=== PATIENT | female | born 1985 | race Caucasian/White ===

== ENCOUNTER 2021-10-12 06:45 | Emergency (ER) | payer SELFPAY ==
[~2021-10-12] VITALS: Ht 167.6 cm; Wt 57.0 kg
[2021-10-12] MEDS ORDERED: HYDR-4001 MT (08:26)
[2021-10-12] MEDS ORDERED: HYDROCODONE/ACETAMINOPHEN 5/325MG TABLET PO ONE (08:30)
[2021-10-12 09:14] VITALS: BP 115/75
== END 2021-10-12 09:17 | disposition home or self-care (01) ==
LOC: ER 06:45
DX: K02.9 Dental caries, unspecified (principal); Z88.8 Allergy status to other drugs, medicaments and biological substances
CPT/HCPCS: 81025; 99283

== ENCOUNTER 2022-02-20 15:34 | Emergency (ER) | payer MEDICAID ==
[~2022-02-20] VITALS: Ht 172.7 cm; Wt 68.1 kg
[~2022-02-20 15:34] MED LIST: HYDR-4001 MT
[2022-02-20 15:40] VITALS: BP 127/84
[2022-02-20] MEDS ORDERED: IBUPROFEN 600MG TABLET PO ONE (18:15)
[2022-02-20] MEDS ORDERED: NAPR-1176 MT (18:15)
== END 2022-02-20 19:16 | disposition home or self-care (01) ==
LOC: ER 15:34
DX: R20.2 Paresthesia of skin (principal); Z88.6 Allergy status to analgesic agent
CPT/HCPCS: 81025; 82962; 99282

== ENCOUNTER 2022-04-05 14:45 | Emergency (ER) | payer MEDICAID ==
[~2022-04-05] VITALS: Ht 165.1 cm; Wt 60.0 kg
[~2022-04-05 14:45] MED LIST changes: +NAPR-1176 MT
[2022-04-05] MEDS ORDERED: IBUPROFEN 600MG TABLET PO ONE (15:30)
[2022-04-05] MEDS ORDERED: TETANUS, DIPHTHERIA, PERTUSSIS VAC/PF 0.5ML (>10YR OLD) IM ONE (15:30)
[2022-04-05] MEDS ORDERED: BACITRACIN ZINC OINT UDPKT TOP ONE (15:45)
[2022-04-05] MEDS ORDERED: T3 PO (15:59)
[2022-04-05] MEDS ORDERED: BO1 TP (16:01)
[2022-04-05 16:10] VITALS: BP 118/73
== END 2022-04-05 16:12 | disposition home or self-care (01) ==
LOC: ER 14:45
DX: S67.192A Crushing injury of right middle finger, initial encounter (principal); S61.212A Laceration without foreign body of right middle finger without damage to nail, initial encounter; X58.XXXA Exposure to other specified factors, initial encounter; Y93.89 Activity, other specified; Y92.89 Other specified places as the place of occurrence of the external cause; Y99.8 Other external cause status
CPT/HCPCS: 29130; 73130; 90471; 90715; 99283

== ENCOUNTER 2022-08-12 22:43 | Emergency (ER) | payer MEDICAID ==
[~2022-08-12] VITALS: Ht 175.3 cm; Wt 72.0 kg
[~2022-08-12 22:43] MED LIST changes: +BO1 TP; +T3 PO
[2022-08-12 23:13] VITALS: BP 129/87
[2022-08-12 23:57] LABS: CHLORIDE 107 mEq/L (98-107)
[2022-08-13 00:05] LABS: BASOPHILS % 0.7 % (0.0-2.0); EOSINOPHILS % 7.8 % (0.0-5.0); HEMATOCRIT. 38.7 % (36.0-48.0); HEMOGLOBIN. 13.3 g/dL (12.0-16.0); MEAN CORPUSCULAR HEMOGLOBIN 30.2 pg (28.0-32.0); MEAN CORPUSCULAR VOLUME 87.9 fL (81.0-99.0); MEAN PLATELET VOLUME 7.5 fl (7.4-10.4); MONOCYTES % 6.8 % (2.0-8.0); NEUTROPHILS % 48.7 % (40.0-76.0); PLATELET 287 x1000/uL (130-400)
[2022-08-13 01:45] LABS: CLARITY URINE CLEAR (CLEAR); COLOR URINE YELLOW (YELLOW); KETONES URINE NEGATIVE (NEGATIVE); LEUKOCYTE ESTERASE URINE NEGATIVE (NEGATIVE); NITRITE URINE NEGATIVE (NEGATIVE); OCCULT BLOOD URINE 2+ (NEGATIVE); PH URINE 5.5 (4.5-8.0); PROTEIN URINE NEGATIVE (NEGATIVE); SPECIFIC GRAVITY URINE 1.022 (1.005-1.030); UROBILINOGEN URINE 0.2 E.U./dL (0.2-1.0)
[2022-08-13] MEDS ORDERED: VISCOUS LIDOCAINE 2% 15 ML UDC MM STA (03:48)
[2022-08-13] MEDS ORDERED: FAMOTIDINE 20MG TABLET PO ONE (04:00)
[2022-08-13] MEDS ORDERED: MAGNESIUM/ALUMINUM HYDROXIDE/SIMETHICONE 30ML UDC PO ONE (04:00)
[2022-08-13] MEDS ORDERED: POTASSIUM CHLORIDE 20MEQ TABLET SR PO ONE (04:30)
== END 2022-08-13 05:06 | disposition home or self-care (01) ==
LOC: ER 22:43
DX: R10.13 Epigastric pain (principal); R11.0 Nausea
CPT/HCPCS: 36415; 71045; 80053; 81003; 81025; 84484; 85025; 99284

== ENCOUNTER 2022-10-01 14:10 | Emergency (ER) | payer MEDICAID ==
[~2022-10-01] VITALS: Ht 170.2 cm; Wt 68.0 kg
[2022-10-01 14:18] VITALS: BP 116/63; PULSE 86; RESP 16; TEMP 98.5; O2SAT 98
[2022-10-01 14:42] LABS: BASOPHILS % 0.6 % (0.0-2.0); EOSINOPHILS % 4.9 % (0.0-5.0); HEMATOCRIT. 38.4 % (36.0-48.0); HEMOGLOBIN. 13.1 g/dL (12.0-16.0); LYMPHOCYTES % 19.7 % (20.0-50.0); MEAN CORPUSCULAR VOLUME 87.8 fL (81.0-99.0); MEAN PLATELET VOLUME 7.5 fl (7.4-10.4); MONOCYTES % 5.3 % (2.0-8.0); NEUTROPHILS % 69.5 % (40.0-76.0); PLATELET 283 x1000/uL (130-400); RED BLOOD CELL COUNT 4.37 mill/uL (4.2-5.4); RED CELL DISTRIBUTION WIDTH 13.4 % (11.6-14.6)
[2022-10-01 14:53] LABS: CLARITY URINE CLEAR (CLEAR); COLOR URINE YELLOW (YELLOW); KETONES URINE NEGATIVE (NEGATIVE); LEUKOCYTE ESTERASE URINE NEGATIVE (NEGATIVE); NITRITE URINE NEGATIVE (NEGATIVE); OCCULT BLOOD URINE 3+ (NEGATIVE); PH URINE 5.5 (4.5-8.0); PROTEIN URINE NEGATIVE (NEGATIVE); SPECIFIC GRAVITY URINE 1.024 (1.005-1.030)
[2022-10-01 14:59] LABS: CHLORIDE 110 mEq/L (98-107)
[2022-10-01 15:15] LABS: HCG SCREEN NEGATIVE
[2022-10-01] MEDS ORDERED: LACT1CAP78 MT (17:08)
[2022-10-01] MEDS ORDERED: TOPUD PO (17:08)
== END 2022-10-01 19:41 | disposition home or self-care (01) ==
LOC: ER 14:10
DX: K52.9 Noninfective gastroenteritis and colitis, unspecified (principal)
CPT/HCPCS: 36415; 74176; 80053; 81003; 81025; 84703; 85025; 99284

== ENCOUNTER 2023-04-14 09:31 | Emergency (ER) | payer MEDICAID ==
[~2023-04-14] VITALS: Ht 170.2 cm; Wt 70.0 kg
[~2023-04-14 09:31] MED LIST changes: +LACT1CAP78 MT; +TOPUD PO
[2023-04-14 09:44] VITALS: O2SAT 99
[2023-04-14] MEDS ORDERED: ACETAMINOPHEN 500MG TABLET PO ONE (10:45)
[2023-04-14] MEDS ORDERED: ACET-2708 MT (11:10)
[2023-04-14 11:25] VITALS: BP 114/68; PULSE 77; RESP 18; TEMP 98.2
[2023-04-14] MEDS ORDERED: CYCL10TA21 MT (11:33)
== END 2023-04-14 12:01 | disposition home or self-care (01) ==
LOC: ER 10:07
DX: M79.672 Pain in left foot (principal); Z79.899 Other long term (current) drug therapy
CPT/HCPCS: 73630; 99283

== ENCOUNTER 2023-04-27 18:04 | Emergency (ER) | payer SELFPAY ==
[~2023-04-27] VITALS: Ht 162.6 cm; Wt 65.0 kg
[~2023-04-27 18:04] MED LIST changes: +ACET-2708 MT; +CYCL10TA21 MT
[2023-04-27 18:35] VITALS: BP 126/69; PULSE 82; RESP 16; TEMP 98; O2SAT 99
[2023-04-27] MEDS ORDERED: GUAI600T26 PO (18:56)
[2023-04-27] MEDS ORDERED: TOPUD PO (18:56)
[2023-04-27] MEDS ORDERED: ONDA4TAB50 PO (18:56)
== END 2023-04-27 19:45 | disposition home or self-care (01) ==
LOC: ER 18:04
DX: U07.1 COVID-19 (principal); R51.9 Headache, unspecified
CPT/HCPCS: 99281; 99283

== ENCOUNTER 2023-06-08 13:13 | Emergency (ER) | payer SELFPAY ==
[~2023-06-08] VITALS: Ht 165.1 cm; Wt 68.0 kg
[~2023-06-08 13:13] MED LIST changes: +GUAI600T26 PO; +ONDA4TAB50 PO
[2023-06-08 13:17] VITALS: BP 110/61; PULSE 71; RESP 16; TEMP 98.1; O2SAT 100
[2023-06-08 15:45] LABS: BASOPHILS % 0.8 % (0.0-2.0); EOSINOPHILS % 3.5 % (0.0-5.0); HEMOGLOBIN. 12.8 g/dL (12.0-16.0); LYMPHOCYTES % 24.4 % (20.0-50.0); MEAN CORPUSCULAR HEMOGLOBIN 30.3 pg (28.0-32.0); MEAN CORPUSCULAR HGB CONC 34.7 g/dL (31.0-37.0); MEAN CORPUSCULAR VOLUME 87.4 fL (81.0-99.0); MEAN PLATELET VOLUME 7.5 fl (7.4-10.4); MONOCYTES % 6.4 % (2.0-8.0); NEUTROPHILS % 64.9 % (40.0-76.0); PLATELET 296 x1000/uL (130-400); RED BLOOD CELL COUNT 4.23 mill/uL (4.2-5.4); WHITE BLOOD COUNT 7.2 x1000/uL (4.5-11.0)
[2023-06-08 16:16] LABS: ALANINE AMINOTRANSFERASE 10 IU/L (10-49); ALBUMIN 4.4 g/dL (3.2-4.8); ASPARTATE AMINOTRANSFERASE 12 IU/L (<34); BILIRUBIN TOTAL 0.4 mg/dL (0.1-1.0); CALCIUM 9.1 mg/dL (8.7-10.4); CARBON DIOXIDE 27 mEq/L (21-32); CHLORIDE 107 mEq/L (98-107); CREATININE 0.6 mg/dL (0.6-1.0); GLUCOSE 92 mg/dL (70-105); POTASSIUM 3.4 mEq/L (3.5-5.1); PROTEIN TOTAL 6.6 g/dL (6.0-8.3); SODIUM 140 mEq/L (136-145); UREA NITROGEN BLOOD 7 mg/dL (9-23)
[2023-06-08 16:37] LABS: TROPONIN I HIGH SENSITIVITY < 4 ng/L (3.0-34)
== END 2023-06-08 18:38 | disposition home or self-care (01) ==
LOC: ER 13:13
DX: R07.89 Other chest pain (principal); Z79.899 Other long term (current) drug therapy
CPT/HCPCS: 36415; 71045; 80053; 84484; 85025; 93005; 99285

== ENCOUNTER 2023-08-08 14:36 | Emergency (ER) | payer MEDICAID ==
[~2023-08-08] VITALS: Ht 165.1 cm; Wt 74.5 kg
[2023-08-08 14:41] VITALS: O2SAT 99
[2023-08-08 15:00] LABS: CLARITY URINE CLOUDY (CLEAR); COLOR URINE YELLOW (YELLOW); GLUCOSE URINE NEGATIVE (NEGATIVE); KETONES URINE NEGATIVE (NEGATIVE); LEUKOCYTE ESTERASE URINE 3+ (NEGATIVE); NITRITE URINE POSITIVE (NEGATIVE); OCCULT BLOOD URINE 2+ (NEGATIVE); PH URINE 5.5 (4.5-8.0); PROTEIN URINE 1+ (NEGATIVE); SPECIFIC GRAVITY URINE 1.022 (1.005-1.030); UROBILINOGEN URINE 0.2 E.U./dL (0.2-1.0)
[2023-08-08 15:05] LABS: BASOPHILS % 0.1 % (0.0-2.0); HEMATOCRIT. 40.9 % (36.0-48.0); HEMOGLOBIN. 13.9 g/dL (12.0-16.0); LYMPHOCYTES % 20.3 % (20.0-50.0); MEAN CORPUSCULAR HEMOGLOBIN 30.4 pg (28.0-32.0); MEAN CORPUSCULAR VOLUME 89.3 fL (81.0-99.0); MEAN PLATELET VOLUME 7.8 fl (7.4-10.4); MONOCYTES % 7.4 % (2.0-8.0); NEUTROPHILS % 66.2 % (40.0-76.0); PLATELET 281 x1000/uL (130-400); RED BLOOD CELL COUNT 4.58 mill/uL (4.2-5.4); RED CELL DISTRIBUTION WIDTH 12.9 % (11.6-14.6); WHITE BLOOD COUNT 7.6 x1000/uL (4.5-11.0)
[2023-08-08 15:15] LABS: SQUAMOUS EPITHELIAL CELL URINE 2+ /lpf (RARE/1+); WBC URINE TNTC /hpf (0-2)
[2023-08-08 15:16] LABS: BACTERIA URINE 3+; CHLORIDE 109 mEq/L (98-107); POTASSIUM 3.4 mEq/L (3.5-5.1); RBC URINE 0-2 /hpf (0-2); SODIUM 140 mEq/L (136-145)
[2023-08-08 15:18] LABS: CALCIUM 8.5 mg/dL (8.7-10.4); CARBON DIOXIDE 24 mEq/L (21-32)
[2023-08-08 15:23] LABS: CREATININE 0.7 mg/dL (0.6-1.0); GLUCOSE 82 mg/dL (70-105); UREA NITROGEN BLOOD 8 mg/dL (9-23)
[2023-08-08] MEDS: ONDANSETRON 4MG ODT PO ONE (16:15)
[2023-08-08] MEDS: ACETAMINOPHEN 325MG TABLET PO ONE (16:16)
[2023-08-08] MEDS: HYDROCODONE/ACETAMINOPHEN 5/325MG TABLET PO ONE (18:20)
[2023-08-08] MEDS: CEFTRIAXONE SODIUM 1G VIAL IM ONE (18:30)
[2023-08-08] MEDS ORDERED: HYDR-4001 MT (20:15)
[2023-08-08] MEDS ORDERED: ONDA4TAB50 PO (20:15)
[2023-08-08] MEDS ORDERED: CIPR-263 MT (20:15)
[2023-08-08 20:50] VITALS: BP 134/78; PULSE 82; RESP 18; TEMP 98
== END 2023-08-08 20:54 | disposition home or self-care (01) ==
LOC: ER 14:36
DX: N12 Tubulo-interstitial nephritis, not specified as acute or chronic (principal); Z79.899 Other long term (current) drug therapy
CPT/HCPCS: 99285; 74176; 80048; 81003; 81025; 85025; 87086; 87186; 87077; 36415; 96372; Q0162; J0696

== ENCOUNTER 2023-12-27 13:22 | Emergency (ER) | payer MEDICAID ==
[~2023-12-27] VITALS: Ht 170.2 cm; Wt 75.0 kg
[~2023-12-27 13:22] MED LIST changes: +CIPR-263 MT
[2023-12-27 13:29] VITALS: TEMP 98.1; O2SAT 72
[2023-12-27] MEDS: LIDOCAINE HCL 1% 20ML VIAL INFIL ONE (15:02)
[2023-12-27] MEDS: TETANUS, DIPHTHERIA, PERTUSSIS VAC/PF 0.5ML (>10YR OLD) IM ONE (15:02)
[2023-12-27 15:05] VITALS: BP 127/78; PULSE 72; RESP 16; O2SAT 99
== END 2023-12-27 15:07 | disposition home or self-care (01) ==
LOC: ER 13:22
DX: S61.211A Laceration without foreign body of left index finger without damage to nail, initial encounter (principal); Z88.6 Allergy status to analgesic agent; Z79.899 Other long term (current) drug therapy; W45.8XXA Other foreign body or object entering through skin, initial encounter; Y93.9 Activity, unspecified; Y92.89 Other specified places as the place of occurrence of the external cause; Y99.8 Other external cause status
CPT/HCPCS: 12001; 90471; 90715; 99283

== ENCOUNTER 2024-02-21 11:43 | Emergency (ER) | payer MEDICAID ==
[~2024-02-21] VITALS: Ht 172.7 cm; Wt 70.0 kg
[2024-02-21 11:46] VITALS: TEMP 98.4; O2SAT 100
[2024-02-21 12:33] LABS: BASOPHILS % 0.6 % (0.0-2.0); EOSINOPHILS % 4.8 % (0.0-5.0); HEMATOCRIT. 40.8 % (36.0-48.0); HEMOGLOBIN. 14.2 g/dL (12.0-16.0); LYMPHOCYTES % 18.1 % (20.0-50.0); MEAN CORPUSCULAR HEMOGLOBIN 30.8 pg (28.0-32.0); MEAN CORPUSCULAR HGB CONC 34.9 g/dL (31.0-37.0); MEAN CORPUSCULAR VOLUME 88.4 fL (81.0-99.0); MEAN PLATELET VOLUME 7.4 fl (7.4-10.4); MONOCYTES % 8.5 % (2.0-8.0); PLATELET 293 x1000/uL (130-400); RED BLOOD CELL COUNT 4.61 mill/uL (4.2-5.4); RED CELL DISTRIBUTION WIDTH 13.1 % (11.6-14.6); WHITE BLOOD COUNT 7.8 x1000/uL (4.5-11.0)
[2024-02-21 12:41] LABS: CARBON DIOXIDE 27 mEq/L (21-32); CHLORIDE 104 mEq/L (98-107); POTASSIUM 3.9 mEq/L (3.5-5.1); SODIUM 136 mEq/L (136-145)
[2024-02-21 12:42] LABS: CALCIUM 9.5 mg/dL (8.7-10.4)
[2024-02-21 12:46] LABS: CREATININE 0.7 mg/dL (0.6-1.0); GLUCOSE 94 mg/dL (70-105)
[2024-02-21 12:47] LABS: UREA NITROGEN BLOOD 11 mg/dL (9-23)
[2024-02-21 12:48] LABS: ALANINE AMINOTRANSFERASE 48 IU/L (10-49); ALBUMIN 4.6 g/dL (3.2-4.8); ASPARTATE AMINOTRANSFERASE 26 IU/L (<34)
[2024-02-21 12:49] LABS: BILIRUBIN DIRECT 0.2 mg/dL (<=3.0); BILIRUBIN TOTAL 0.8 mg/dL (0.1-1.0); PROTEIN TOTAL 7.7 g/dL (6.0-8.3)
[2024-02-21 13:02] LABS: INR 0.9; PROTHROMBIN TIME 10.4 sec (9.6-11.0)
[2024-02-21] MEDS: HYDROCODONE/ACETAMINOPHEN 5/325MG TABLET PO ONE (13:12)
[2024-02-21] MEDS: ONDANSETRON 4MG ODT PO ONE (13:13)
[2024-02-21 13:31] LABS: HCG SCREEN NEGATIVE
[2024-02-21 13:44] LABS: CLARITY URINE CLEAR (CLEAR); COLOR URINE YELLOW (YELLOW); GLUCOSE URINE NEGATIVE (NEGATIVE); KETONES URINE NEGATIVE (NEGATIVE); LEUKOCYTE ESTERASE URINE NEGATIVE (NEGATIVE); NITRITE URINE NEGATIVE (NEGATIVE); OCCULT BLOOD URINE 1+ (NEGATIVE); PH URINE 6.5 (4.5-8.0); PROTEIN URINE NEGATIVE (NEGATIVE); SPECIFIC GRAVITY URINE 1.008 (1.005-1.030); UROBILINOGEN URINE 0.2 E.U./dL (0.2-1.0)
[2024-02-21 15:19] LABS: SQUAMOUS EPITHELIAL CELL URINE 1+ /lpf (RARE/1+)
[2024-02-21 15:20] LABS: WBC URINE 0-2 /hpf (0-2)
[2024-02-21 15:23] VITALS: BP 126/78; PULSE 74; RESP 16; O2SAT 99
[2024-02-21 15:31] LABS: BACTERIA URINE TRACE
== END 2024-02-21 15:25 | disposition home or self-care (01) ==
LOC: ER 11:43
DX: R10.2 Pelvic and perineal pain (principal); Z88.6 Allergy status to analgesic agent; Z79.899 Other long term (current) drug therapy
CPT/HCPCS: 99284; 74176; 76830; 76856; 80076; 80048; 81003; 84703; 84702; 83690; 85025; 85610; 36415; Q0162

== ENCOUNTER 2024-04-27 14:37 | Emergency (ER) | payer MEDICAID ==
[~2024-04-27] VITALS: Ht 172.7 cm; Wt 64.0 kg
[2024-04-27 14:43] VITALS: O2SAT 97
[2024-04-27 14:49] VITALS: BP 113/80; PULSE 81; RESP 16; TEMP 36.94740; O2SAT 97
== END 2024-04-27 18:44 | disposition left against medical advice (07) ==
LOC: ER 14:37
DX: R50.9 Fever, unspecified (principal); Z53.21 Procedure and treatment not carried out due to patient leaving prior to being seen by health care provider

== ENCOUNTER 2024-12-19 23:12 | Emergency (ER) | payer MEDICAID ==
[~2024-12-19] VITALS: Ht 167.6 cm; Wt 79.9 kg
[2024-12-19 23:29] VITALS: O2SAT 99
[2024-12-20] MEDS ORDERED: TRAM-534 MT (01:00)
[2024-12-20] MEDS: ACETAMINOPHEN 500MG TABLET PO ONE (01:24)
[2024-12-20] MEDS: TRAMADOL 50MG TABLET PO ONE (01:24)
[2024-12-20 01:32] VITALS: BP 115/66; PULSE 83; RESP 18; TEMP 37; O2SAT 99
== END 2024-12-20 01:34 | disposition home or self-care (01) ==
LOC: ER 23:12
DX: S90.02XA Contusion of left ankle, initial encounter (principal); Z79.1 Long term (current) use of non-steroidal anti-inflammatories (NSAID); Z79.899 Other long term (current) drug therapy; Z88.6 Allergy status to analgesic agent; X58.XXXA Exposure to other specified factors, initial encounter; Y93.89 Activity, other specified; Y92.89 Other specified places as the place of occurrence of the external cause; Y99.8 Other external cause status
CPT/HCPCS: 73610; 81025; 99283

== ENCOUNTER 2025-03-07 01:54 | Emergency (ER) | payer MEDICAID ==
[~2025-03-07] VITALS: Ht 167.6 cm; Wt 78.5 kg
[~2025-03-07 01:54] MED LIST changes: +TRAM-534 MT
[2025-03-07 02:09] VITALS: BP 114/69; TEMP 36.5; O2SAT 99
[2025-03-07 02:10] VITALS: PULSE 89; RESP 18; O2SAT 98
== END 2025-03-07 04:49 | disposition left against medical advice (07) ==
LOC: ER 01:54
DX: R10.12 Left upper quadrant pain (principal)
CPT/HCPCS: 99281

== ENCOUNTER 2025-04-14 15:54 | Emergency (ER) | payer MEDICAID ==
[~2025-04-14] VITALS: Ht 167.6 cm; Wt 70.0 kg
[2025-04-14 16:08] VITALS: O2SAT 100
[2025-04-14 16:51] LABS: BASOPHILS % 0.7 % (0.0-2.0); EOSINOPHILS % 3.2 % (0.0-5.0); HEMATOCRIT. 40.8 % (36.0-48.0); HEMOGLOBIN. 13.5 g/dL (12.0-16.0); LYMPHOCYTES % 21.6 % (20.0-50.0); MEAN PLATELET VOLUME 7.8 fl (7.4-10.4); MONOCYTES % 5.5 % (2.0-8.0); NEUTROPHILS % 69.0 % (40.0-76.0); PLATELET 277 x1000/uL (130-400); RED BLOOD CELL COUNT 4.69 mill/uL (4.2-5.4); RED CELL DISTRIBUTION WIDTH 13.5 % (11.6-14.6)
[2025-04-14 17:01] LABS: CREATININE 0.7 mg/dL (0.6-1.0); UREA NITROGEN BLOOD 6 mg/dL (9-23)
[2025-04-14 17:02] LABS: TROPONIN I HIGH SENSITIVITY < 4 ng/L (3.0-34)
[2025-04-14 17:29] VITALS: BP 111/71; PULSE 89; RESP 16; TEMP 36.8; O2SAT 100
[2025-04-14] MEDS ORDERED: IBUPROFEN 600MG TABLET PO ONE (17:30)
== END 2025-04-14 17:30 | disposition home or self-care (01) ==
LOC: ER 15:54
DX: M94.0 Chondrocostal junction syndrome [Tietze] (principal); E78.5 Hyperlipidemia, unspecified; Z88.0 Allergy status to penicillin; Z88.6 Allergy status to analgesic agent; Z79.899 Other long term (current) drug therapy
CPT/HCPCS: 36415; 71045; 80048; 84484; 85025; 93005; 99291